=== PATIENT | female | born 2000 | race Caucasian/White ===

== ENCOUNTER 2024-03-15 00:12 | Emergency (ER) | payer MEDICAID ==
[~2024-03-15] VITALS: Ht 152.4 cm; Wt 72.0 kg
[2024-03-15] MEDS: ACETAMINOPHEN 325MG TABLET PO ONE (03:30)
[2024-03-15] MEDS: ALBUTEROL (0.083%) 2.5MG/3ML NEB HHN STA (04:38)
[2024-03-15 04:39] VITALS: PULSE 91; RESP 24; O2SAT 99
[2024-03-15] MEDS ORDERED: ALBU6.7H15 INH (04:57)
[2024-03-15] MEDS ORDERED: ACET-2708 MT (04:57)
[2024-03-15] MEDS ORDERED: GUAI600T26 MT (04:57)
[2024-03-15] MEDS: GUAIFENESIN 600MG ER TABLET PO ONE (05:43)
[2024-03-15 05:44] VITALS: BP 124/60; PULSE 98; RESP 18; TEMP 98.3
[2024-03-15] MEDS: DEXAMETHASONE 10 MG/ML VIAL IM ONE (05:44)
[2024-03-16] MEDS ORDERED: AMOX1TAB16 MT (02:41)
[2024-03-16] MEDS ORDERED: ACET-2708 MT (02:41)
[2024-03-16] MEDS ORDERED: ALBU6.7H15 INH (02:41)
[2024-03-16] MEDS ORDERED: BO1 TP (02:41)
[2024-03-16] MEDS ORDERED: GUAI600T26 MT (02:41)
== END 2024-03-15 05:50 | disposition home or self-care (01) ==
LOC: ER 00:12
DX: J40 Bronchitis, not specified as acute or chronic (principal); B34.9 Viral infection, unspecified; Z00.00 Encounter for general adult medical examination without abnormal findings; Z20.822 Contact with and (suspected) exposure to COVID-19
CPT/HCPCS: 94640; 81025; 71045; 96372; 99284; 87426; Z7610 ×3; J1100

== ENCOUNTER 2024-03-16 00:45 | Emergency (ER) | payer MEDICAID ==
[~2024-03-16] VITALS: Ht 152.4 cm; Wt 69.0 kg
[~2024-03-16 00:45] MED LIST: ACET-2708 MT; ALBU6.7H15 INH; GUAI600T26 MT
[2024-03-16 01:10] VITALS: BP 132/85; TEMP 98.6
[2024-03-16] MEDS: TETANUS, DIPHTHERIA, PERTUSSIS VAC/PF 0.5ML (>10YR OLD) IM ONE (02:30)
[2024-03-16] MEDS ORDERED: ALBUTEROL 6.7GM HFA INHALER ORI ONE (02:30)
[2024-03-16] MEDS ORDERED: ALBU6.7H15 INH (02:41)
[2024-03-16] MEDS ORDERED: GUAI600T26 MT (02:41)
[2024-03-16] MEDS ORDERED: BO1 TP (02:41)
[2024-03-16] MEDS ORDERED: ACET-2708 MT (02:41)
[2024-03-16] MEDS ORDERED: AMOX1TAB16 MT (02:41)
[2024-03-16 02:46] VITALS: PULSE 99; RESP 20; O2SAT 98
[2024-03-16] MEDS: ALBUTEROL (0.083%) 2.5MG/3ML NEB HHN ONE (02:46)
== END 2024-03-16 03:28 | disposition home or self-care (01) ==
LOC: ER 00:45
DX: S41.152A Open bite of left upper arm, initial encounter (principal); J40 Bronchitis, not specified as acute or chronic
CPT/HCPCS: 90715; 94640; 90471; 99283; Z7610 ×2